=== PATIENT | male | born 1985 | race Two or more races ===

== ENCOUNTER 2024-01-03 13:02 | Emergency (ER) | payer SELFPAY ==
[2024-01-03 13:17] VITALS: BP 164/100; PULSE 95; RESP 20; TEMP 36.8; O2SAT 100
--- NOTE | 2024-01-03 13:22 | ED.GENADULT ---
HPI - General Adult General Chief complaint: Unspecified Stated complaint: Medication Refill Time Seen by Provider: 01/03/24 13:22 Source: patient and clinical aide Mode of arrival: ambulatory Limitations: no limitations History of Present Illness HPI narrative: 38 yo M presents requesting medication refill. Pt is over the road maddy. Has been out of his medications for 7 days to treat HTN and high cholesterol. Will be home in January to see his PCP. C/o L sided CP for 1 wk, no other symptoms. All systems reviewed and negative except as noted above. Related Data Home Medications Medication Instructions Recorded Confirmed amlodipine 5 mg tablet 5 mg PO DAILY 01/03/24 01/03/24 atorvastatin 10 mg tablet 10 mg PO HS 01/03/24 01/03/24 Allergies Allergy/AdvReac Type Severity Reaction Status Date / Time No Known Allergies Allergy Verified 01/03/24 13:16 Review of Systems Review of Systems: CONSTITUTIONAL: Denies fever, chills, or sweats. EYES: Denies visual changes, redness, or discharge. ENT: Denies rhinorrhea, congestion, sore throat, or otalgia. CARDIOVASCULAR: Reports left-sided chest pain. Denies palpitations, or edema. RESPIRATORY: Denies cough or dyspnea. GASTROINTESTINAL: Denies abdominal pain, nausea, vomiting, or diarrhea. GENITOURINARY: Denies dysuria or hematuria. SKIN: Denies rash or itching. MUSCULOSKELETAL: Denies back pain, joint pain, or myalgia. NEUROLOGIC: Denies headache, numbness, or weakness. PSYCHIATRIC: Denies anxiety or depression. All other systems reviewed are negative, except as documented in HPI. PMFSH Comments At time of signature, agree with nursing past medical, surgical, social and family history. There is no relevant family history pertinent to the presenting complaint. Exam Narrative: GENERAL: This is a well-nourished, well-developed patient, in no apparent distress. HEAD: normocephalic, atraumatic. EYES: PERRL. Sclera clear/white. Vision is grossly intact. EARS: External ears normal NOSE: External nose normal NECK: Neck supple, non-tender without lymphadenopathy, masses or thyromegaly. CARDIOVASCULAR: Regular rate and rhythm without murmurs, gallops, or rubs. RESPIRATORY: Clear to auscultation. Breath sounds equal bilaterally. No wheezes, rales, or rhonchi. SKIN: warm, Dry, intact with no suspicious lesions or rash, good texture and turgor. NEURO: awake, alert, and oriented to person, place and time. There were no obvious focal neurologic abnormalities. EXTREMITIES: No joint tenderness, effusion, or edema noted. Course Course Level of Care: Express Care Visit Vital Signs Vital signs: Vital Signs Temperature 36.8 C 01/03/24 13:17 Pulse Rate 95 01/03/24 13:17 Respiratory Rate 20 01/03/24 13:17 Blood Pressure 164/100 H 01/03/24 13:17 Pulse Oximetry 100 01/03/24 13:17 Oxygen Delivery Room Air 01/03/24 13:17 Temperature 36.8 C 01/03/24 13:17 Pulse Rate 95 01/03/24 13:17 Respiratory Rate 20 01/03/24 13:17 Blood Pressure 164/100 H 01/03/24 13:17 Pulse Oximetry 100 01/03/24 13:17 Oxygen Delivery Room Air 01/03/24 13:17 reviewed Medical Decision Making MDM Narrative Medical decision making narrative: patient refused EKG and transfer to ER to further evaluate left-sided chest pain. patient feels the chest pain is related to being off his medications for blood pressure elevated today. Patient is aware of diagnosis, understands and agrees to treatment plan. Anticipatory guidance given. Patient agrees to follow-up as directed and is aware of reasons to seek care at the emergency department. Portions of this record may have been created with voice recognition software Vital Signs Vital Signs: Vital Signs Temperature 36.8 C 01/03/24 13:17 Pulse Rate 95 01/03/24 13:17 Respiratory Rate 20 01/03/24 13:17 Blood Pressure 164/100 H 01/03/24 13:17 Pulse Oximetry 100 01/03/24 13:17 Oxygen Delivery
[2024-01-03 13:23] VITALS: BP 164/100; PULSE 95; RESP 20; TEMP 36.8; O2SAT 100
[2024-01-03 13:27] VITALS: BP 152/94
[2024-01-03 13:32] VITALS: BP 152/94
== END 2024-01-03 13:47 | disposition left against medical advice (07) ==
PROVIDERS: Emergency Provider Nurse Practitioner Family
DX: I10 Essential (primary) hypertension (principal); E78.00 Pure hypercholesterolemia, unspecified
CPT/HCPCS: 99202; G0463